=== PATIENT | female | born 1975 | race Caucasian/White ===

== ENCOUNTER → 2018-02-18 11:57 | Outpatient (CLI) | payer SELFPAY ==
[2018-02-18 12:01] LABS: Lyme Ab Screen Interpretation REF LAB
[2018-02-18 15:33] LABS: Absolute Lymphocyte Count 1.88 X10^3/ul (0.83-4.51); Basophil% 1.8 % (0-1); Eosinophil# 0.38 X10^3/uL; Eosinophils% 6.7 % (0-5); Hematocrit 41.3 % (37-47); Hemoglobin 13.3 g/dl (12.0-15.0); Lymphocyte # 1.88 X10^3/ul (4.0); Lymphocyte % 33.1 % (19-41); Mean Corp Hgb Conc 32.2 g/gl (32-36); Mean Corpuscular Hgb 30.2 pg (27.0-32.0); Mean Corpuscular Volume 93.7 fL (81-99); Monocyte# 0.37 X10^3/uL; Monocyte% 6.5 % (0-10); Neutrophil # 2.95 X10^3/uL (2.7-7.7); Neutrophil % 51.9 % (47-70); Platelet Count 212 K/mm3 (150-450); RBC Distribution Width CV 13.1 % (11.6-14.6); RBC Distribution Width SD 43.6 fl (35.1-43.9); Red Blood Count 4.41 M/mm3 (4.2-5.4); White Blood Count 5.7 K/mm3 (4.4-11.0)
[2018-02-18 15:43] LABS: AST(SGOT) 20 U/L (15-37); Alanine Aminotransfer ALT/SGPT 26 U/L (13-56); Albumin, Serum 3.9 g/dL (3.2-5.0); Alkaline Phosphatase 66 U/L (45-117); Anion Gap 7 (5-15); BUN 9 mg/dL (7-18); BUN/Creat Ratio 10.6 RATIO (10-20); Calcium,Total 8.6 mg/dL (8.5-10.1); Chloride 108 mmol/L (98-107); Creatinine, Serum 0.85 mg/dL (0.55-1.02); EST Glomerular Filtration Rate 78 mL/min (>60); Est Glom Filt Rate - Afr Amer 95 mL/min (>60); Ferritin 60 ng/mL (8-252); Globulin 3.9 g/dL (2.2-4.2); Glucose 84 mg/dL (74-106); Potassium 4.2 mmol/L (3.5-5.1); Protein, Total 7.8 g/dL (6.4-8.2); Rheumatoid Factor < 10.0 IU/mL (<15); Sodium Level 141 mmol/L (136-145); Thyroid Stim Hormone (TSH) 1.44 uIU/mL (0.358-3.74)
[2018-02-18 15:52] LABS: POSITIVE COUNT NO; POSITIVE DIFFERENTIAL NO; POSITIVE MORPHOLOGY NO
[2018-02-19 09:48] LABS: Vitamin B12 687 pg/mL (211-911)
[2018-02-20 15:35] LABS: ANTINUCLEAR ANTIBODIES DIRECT Negative (Negative)
[2018-02-20 16:11] LABS: Endomysial Antibody IgA Negative (Negative); Immunoglobulin A 281 mg/dL (87-352)
[2018-02-21 11:38] LABS: Deamidated Gliadin IgA 5 units (0-19); Deamidated Gliadin IgG 3 units (0-19); Lyme Scn Total Ab w/Rflx <0.91 ISR (0.00-0.90); t-Transglutaminase IgA <2 U/mL (0-3)
== END ==
PROVIDERS: Family Provider Family Medicine; PCP Family Medicine; Visit Provider Family Medicine
DX: R53.83 Other fatigue (principal); R19.7 Diarrhea, unspecified
CPT/HCPCS: 36415; 80053; 82607; 82728; 82784; 83516; 84443; 85025; 86038; 86255; 86431; 86618